=== PATIENT | male | born 1980 | race Caucasian/White ===

== ENCOUNTER 2024-11-21 20:17 | Emergency (ER) | payer OTHER, SELFPAY ==
[2024-11-21 20:29] VITALS: BP 124/81; PULSE 71; RESP 16; TEMP 36.7; O2SAT 98; BMI 22.9
--- NOTE | 2024-11-21 20:32 | DI.RAD.S_ITS ---
PROCEDURE: XR TIBIA FIBULA LT 2V INDICATIONS: fall, impact to maki TECHNIQUE: 2 views of the tibia and fibula were acquired. COMPARISON: None. FINDINGS: Bones: No fractures or dislocations. No suspicious bony lesions. Soft tissues: No suspicious soft tissue calcifications or masses. IMPRESSION: No acute osseous abnormality. If pain persists with conservative management, consider repeat x-ray in 10-14 days or cross-sectional imaging. Dictated by: Thom Suh M.D. on 11/21/2024 at 20:56 Approved by: Thom Suh M.D. on 11/21/2024 at 20:56
--- NOTE | 2024-11-22 00:52 | ED.LOWEXIN ---
HPI - Extremity Injury (Lower) General Chief Complaint: Extremity Injury, Lower Stated Complaint: lt leg swelling, swelling Time Seen by Provider: 11/22/24 00:52 Source: patient Mode of arrival: Ambulatory History of Present Illness HPI Narrative: 43-year-old male without any significant past medical history presents into the emergency department from home for evaluation of left leg swelling pain, states that he started having sudden onset left leg pain earlier today after he states he slipped and landed on the deck and hit the left leg/maki. He is able to stand bear weight ambulate unassisted here in the emergency department. He denies any other injuries or trauma, not on any blood thinners denies head strike denies any numbness weakness tingling to lower extremities. Related Data Allergies Allergy/AdvReac Type Severity Reaction Status Date / Time No Known Drug Allergies Allergy Verified 11/21/24 20:29 Review of Systems Review of Systems Narrative: General: Denies fever, chills, weight loss HEENT: Denies headache, eye drainage, eye irritation, head trauma, sore throat, voice change Cardiovascular: Denies any chest pain, palpitations, shortness of breath, tachycardia Respiratory: Denies any shortness of breath, cough, wheeze, stridor GI/: Denies any abdominal pain, nausea, vomiting, diarrhea, bright red blood per rectum, melanotic stools, urinary frequency, urinary retention, dysuria, hematuria MSK: Left lower leg swelling pain Skin: Denies any rashes, lesions, discoloration Neuro: Denies any headache, lightheadedness, dizziness, fainting, weakness Psych: Denies SI/HI Patient History Social History Smoking Status: Never smoker Smoking Status: Never smoker Exam Narrative Exam Narrative: General: Cooperative, comfortable, well-developed, not in acute distress HEENT: Normocephalic, atraumatic, PERRLA, normal sclera, eyelids normal, Neck: Active full range of motion, atraumatic Chest: Normal to inspection, negative crepitus, no overlying erythema ecchymosis Respiratory: Normal respiratory effort, not in acute respiratory distress, clear to auscultation bilaterally negative cough, wheeze, tachypnea, rhonchi, rales Cardiology: Regular rate rhythm negative gallop, murmur, rubs GI/: Normal to inspection, soft, nonrigid, no tenderness to palpation, exam deferred MSK: Full range of active range of motion of all 4 extremities, left lower extremities bilaterally neurovascularly intact, minor tenderness to palpation over the anterior maki of the left leg but no gross deformity no palpable step-off consistent with recent trauma to the leg. Patient is able to stand bear weight ambulate unassisted in the emergency department Skin: No rashes lesions noted Neuro: Alert awake oriented x3, moves all 4 extremities spontaneously, cranial nerves intact, able to answer all questions appropriately follows commands appropriately Psych: Cooperative, negative suicidal or homicidal ideations Initial Vital Signs Initial Vital Signs: Vital Signs Temperature 98.0 F 11/21/24 20:29 Pulse Rate 71 11/21/24 20:29 Respiratory Rate 16 11/21/24 20:29 Blood Pressure 124/81 11/21/24 20:29 Pulse Oximetry 98 11/21/24 20:29 Oxygen Delivery Method Room Air 11/21/24 20:29 Course Orders Ordered: ED Orders 11/21/24 20:32 XR tibia fibula LT 2V Stat Vital Signs Vital signs: Vital Signs - 8 hr 11/21/24 20:29 Temperature 98.0 F Pulse Rate 71 Respiratory Rate 16 Blood Pressure 124/81 Pulse Oximetry 98 Oxygen Delivery Method Room Air MDM - Extremity Injury (Lower) Differential Diagnosis Differential diagnosis: Likely other (Contusion, fracture, strain, sprain) Imaging Data Extremity x-ray #1: Radiologist's Impression: [address] [address] XRay Report Signed Patient: Garland Bravo MR#: [id number] : 1980 Acct:[id number] Age/Sex: 43 / M Date of Service: 11/21/24 Loc: ED Accession Number: [id number] Procedure: XR tibia fibula LT 2V Ordering Provider: Toan Bear D.O. PROCEDURE: XR TIBIA FIBULA LT 2V INDICATIONS: fall, impact to maki TECHNIQUE: 2 views of the tibia and fibula were acquired. COMPARISON: None. FINDINGS: Bones: No fractures or dislocations. No suspicious bony lesions. Soft tissues: No suspicious soft tissue calcifications or masses. IMPRESSION: No acute osseous abnormality. If pain persists with conservative management, consider repeat x-ray in 10-14 days or cross-sectional imaging. [facility] Narrative Medical decision making narrative: 43-year-old male without any significant past medical history comes into the ED from home for evaluation of left leg pain. States that he was at home several hours ago was caring his son tripped on his deck and hit the anterior aspect of his left maki. Had immediate pain but was able to stand bear weight ambulate, states that he noticed a swollen area and was concerned and wanted it to be evaluated. On exam patient neurovascularly intact lower extremities x-ray negative for any acute fracture he is able to stand bear weight ambulate on assisted here in the emergency department. Patient was instructed to ice the area for the next 2 days. Patient was given strict return precautions he verbalized understanding of this and agrees to being discharged home with outpatient follow up. Discharge Plan Departure Patient Disposition: Home Clinical Impression: Contusion of left leg Instructions: DI for Contusion Activity Restrictions/Additional Instructions: Please follow up with Primary care as needed Please read the discharge instructions sheet carefully and bring all papers to all doctor follow-up visits, as it may contain information that your doctor may want to see. Disease processes change and evolve, if your symptoms worsen or if you develop any new symptoms that are concerning to you please return for evaluation. Your evaluation today does not show any evidence of any life-threatening/serious illnesses requiring admission to the hospital or surgery. Please follow-up with your doctor for re-evaluation in approximately 1 day. Seek immediate medical attention for any worrisome symptoms. *If you do not have a primary care provider please contact the [facility] Resource line at [phone]. They will ask some questions about your medical history and help get you set up with a doctor in the community. Stand Alone Forms: Patient Portal/API/Survey, Work Release Note
[2024-11-22 01:13] VITALS: BP 117/70; PULSE 58; RESP 14; O2SAT 100
== END 2024-11-22 01:13 | disposition home or self-care (01) ==
PROVIDERS: Emergency Provider Student in an Organized Health Care Education/Training Program
DX: S80.12XA Contusion of left lower leg, initial encounter (principal); W01.0XXA Fall on same level from slipping, tripping and stumbling without subsequent striking against object, initial encounter
CPT/HCPCS: 73590; 99281; 99283